=== PATIENT | male | born 1990 | race Caucasian/White ===

== ENCOUNTER 2016-12-08 11:46 | Emergency (ER) | payer BC ==
[~2016-12-08] VITALS: Ht 172.7 cm; Wt 74.1 kg
[2016-12-08 12:52] VITALS: BP 116/67
[2016-12-08] MEDS ORDERED: BACITRACIN ZINC OINT 500U/GM, 0.9 GM ONE (13:45)
== END 2016-12-08 13:49 | disposition home or self-care (01) ==
LOC: ED 13:36
DX: R04.0 Epistaxis (principal); H65.03 Acute serous otitis media, bilateral; J00 Acute nasopharyngitis [common cold]
CPT/HCPCS: 99283